=== PATIENT | male | born 1945 | race Caucasian/White ===

== ENCOUNTER 2018-11-14 17:51 | Inpatient (IN) | payer MEDICARE, BC ==
[~2018-11-14 17:51] MED LIST: ISOVUE-370 76%-LOCM 1 ML ONE
[2018-11-14] MEDS ORDERED: Acetaminophen 500 MG TAB ONE (18:23)
[2018-11-14 18:25] LABS: #Eosinphils 0.1 thou/uL (0.0-0.7); #Lymphocytes 0.7 thou/uL (1.20-3.40); #Neutrophils 6.8 thou/uL (1.40-6.50); %Basophils 0.2 % (0.0-1.0); %Eosinophils 0.9 % (0.0-10.0); %Lymphocytes 9.7 % (21.0-51.0); %Monocytes 0.5 % (0.0-10.0); %Neutrophils 88.7 % (42.0-75.0); Mean Corpuscular HGB CONC 33.3 g/dL (32.0-36.0); Mean Corpuscular Hemoglobin 30.1 pg (27.0-31.0); Mean Corpuscular Volume 90.4 fL (78.0-98.0); Mean Platelet Volume 6.4 fL (7.4-10.4); Platelet Count 247 thou/uL (130-400); RBC Distribution Width 13.3 % (11.5-14.5); Red Blood Cell (RBC) Count 5.31 mill/uL (4.70-6.10); White Blood Cell (WBC) Count 7.7 thou/uL (4.8-10.8)
--- NOTE | 2018-11-14 18:49 | RAD ---
AP VIEW CHEST 11/14/18 HISTORY: AP view chest is obtained on 11/14/18. AP view chest demonstrates cardiomegaly. Pulmonary vascular congestion is seen. There is some dextros coliosis seen. No evidence of effusion seen. IMPRESSION: Pulmonary vascular congestion and cardiomegaly. POS: H
[2018-11-14 18:50] LABS: ALT (SGPT) 15 U/L (8-55); AST (SGOT) 20 U/L (5-34); Albumin 4.3 g/dL (3.4-4.8); Alkaline Phosphatase 45 U/L (40-150); Anion Gap 16 mmol/L (10-20); BUN (Urea Nitrogen) 24 mg/dL (8.4-25.7); Bilirubin, Total 1.3 mg/dL (0.2-1.2); Calc. Creatinine Clearance 0 mL/min (70-130); Calcium 10.3 mg/dL (7.8-10.44); Carbon Dioxide 20 mmol/L (23-31); Chloride 103 mmol/L (98-107); Estimated GFR-MDRD 59; Globulin 2.8 g/dL (2.4-3.5); Glucose 89 mg/dL (80-115); Magnesium 1.8 mg/dL (1.6-2.6); Potassium 4.1 mmol/L (3.5-5.1); Protein, Total 7.1 g/dL (5.8-8.1); Sodium 135 mmol/L (136-145)
[2018-11-14 19:33] LABS: Bilirubin Negative (Negative); Blood, Urine Negative (Negative); Clarity CLEAR (Clear); Glucose, Urine (Dipstick) Negative (Negative); Leukocyte Negative (Negative); Nitrite Negative (Negative); Protein, Urine (Dipstick) Negative (Neg-Trace); Specific Gravity, Urine 1.017 (1.002-1.036)
[2018-11-14] MEDS ORDERED: Ibuprofen 800 MG TAB ONE (19:44)
[2018-11-14] MEDS ORDERED: Diltiazem HCl 125 MG, Admixture Fee 1 EACH in Sodium Chloride 0.9% 100 ML IVPB SCH (19:45)
--- NOTE | 2018-11-14 20:39 | CT ---
CONTRAST ENHANCED CT IMAGES OF ABDOMEN AND PELVIS: 11/14/18 HISTORY: Abdominal pain. Fever. Contrast enhanced CT images of the abdomen and pelvis demonstrate the lung bases to be unremarkable. The liver, spleen, and pancreas are unremarkable. The gallbladder has been surgically removed. Adrena l glands are unremarkable. The right kidney is unremarkable. Small cortical cysts seen in the left ki dney. Mildly dilated loops of proximal small bowel seen. There are numerous descending and sigmoid colonic diverticula compatible with diverticulosis. There i s also inflammatory change surrounding the sigmoid colon and the surrounding fat compatible with dive rticulitis. There is inflammation of the pericolonic fat but no definite evidence of abscess. No defi nite evidence of free intraperitoneal air seen. Also noted is a 3.1 x 3.9 x 8.0 cm area of soft tissu e fluid density anterior to the left hip joint. This may represent a synovial cyst originating from t he left hip joint. Correlation with MRI may be of use to further characterize this. IMPRESSION: Descending colonic diverticulosis with surrounding inflammatory change concerning for diverticulitis as well. POS: [facility]
[2018-11-14] MEDS ORDERED: MEROPENEM 1 GM/50 ML 1 GM in Premix Bag 1 BAG IVPB SCH (20:45)
[2018-11-14 22:27] LABS: Lactic Acid 1.3 mmol/L (0.5-2.2)
[2018-11-15 00:02] VITALS: BMI 32.4
--- NOTE | 2018-11-15 00:26 | HP ---
PRIMARY CARE PHYSICIAN: Sylvain Amador DO CHIEF COMPLAINT: Abdominal pain. HISTORY OF PRESENT ILLNESS: The patient is a 72-year-old male with past medical history of atrial fibrillation, hypertension, diverticulosis and diverticulitis , who presented to the emergency department for abdominal pain. The patient reports that the symptom has been going on since last night and started to get worse. The patient reports a subjective fever. The patient reports compliant with all his medications. He denies any nausea or vomiting at this point. The patient says that he has multiple episodes of diverticulitis in the past and he has known history of diverticulosis. The patient denies any resection of his bowels. The patient also reports history of atrial fibrillation and he is on metoprolol and Pradaxa. The patient does follow up with business analysis analyst. The patient denies any chest pain or palpitations at this point. The patient reports that he is feeling better. The patient reports that he has not eaten in some time at this point. PAST MEDICAL HISTORY: Hypertension, atrial fibrillation, diverticulosis and diverticulitis. PAST SURGICAL HISTORY: Hernia repair and cholecystectomy. FAMILY HISTORY: The patient is adopted and therefore unknown SOCIAL HISTORY: The patient denies any smoking, drinking, or illicit drugs. CURRENT MEDICATIONS: 1. Metoprolol. 2. Pradaxa. 3. Lisinopril. 4. Vitamin D. REVIEW OF SYSTEMS: CONSTITUTIONAL: The patient reports fever. EYES: Denies any pain in the eyes. ENT: Denies any sore throat or sinus pain. CARDIOVASCULAR: Denies any chest pain, or palpitations at this point. RESPIRATIONS: Denies any cough, shortness of breath, or wheezing. GI: Abdominal pain. Denies diarrhea, nausea, or vomiting. GENITOURINARY: Denies any dysuria or blood in urine. MUSCULOSKELETAL: Denies any joint pain. SKIN: Denies any rashes. NEUROLOGIC: Denies any dizziness, headache, or loss of consciousness. EXTREMITIES: Denies any lower extremity edema. PHYSICAL EXAMINATION: VITAL SIGNS: Afebrile, tachycardia. Blood pressure 93/59, heart rate 122, respiratory rate 18, and O2 saturation 93% on room air. HEAD: Atraumatic. Eyes, PERRLA. NECK: No lymphadenopathy noted. ENT: Normal uvula. RESPIRATIONS: No respiratory distress. Breath sounds clear. CARDIOVASCULAR: Tachycardia, irregularly irregular heart rhythm. No murmur or rubs. ABDOMEN: Abdominal pain, mild discomfort to palpation on the left, otherwise is significant with decreased bowel sounds and no distention. NEURO: Alert and oriented. BACK AND MUSCULOSKELETAL: No edema noted. SKIN: No rashes. PSYCHIATRIC: Alert and oriented. IMAGING: EKG, Afib with RVR. Review of CT scan of pelvis is significant for diverticulitis. A chest x-ray reviewed. LABORATORY DATA: Labs reviewed and significant labs include troponin normal, white blood cell count within normal limits. BNP 133, urine negative. We will get lactic acid. ASSESSMENT AND PLAN: 1. Diverticulitis. The patient was started on Meropenem. Given multiple history of diverticulitis, we will do a surgical consult. At this point, keep n.p.o. Advised diet in the morning if the patient is able to tolerate well, IVF p.r.n. pain control and Zofran p.r.n. 2. Atrial fibrillation with rapid ventricular response. We will continue Cardizem drip, at this point tele. Trend troponin's. Continue home metoprolol and Pradaxa. 3. Hypertension. Continue home medications once reconciliation is complete. Also, do Cardiology consult and echocardiogram in the morning. Continue home medications. 4. Deep venous thrombosis prophylaxis. Continue Pradaxa. The patient reports that he is full code and his medical power of disability attorney would be his , daughter, then son. 5. Sepsis. A clinical concern for sepsis likely due to diverticulitis present on admission, organism unknown at this point. We will get blood cultures. 6. Pulmonary Congestion: Likely related to Afib with RVR. Pt does not seems to be hypoxic or have acute resp failure. TTE pending. 7. Hypotension: SBP noted to be in 80s during admission, pt was asx. improved with 500 cc NS bolus. Avoid excessive hydration given pulm congestion noted on CXR Job ID: [id number] [facility]
[2018-11-15] MEDS ORDERED: MEROPENEM 1 GM/50 ML 1 GM in Premix Bag 1 BAG IVPB PRN (01:52)
[2018-11-15] MEDS ORDERED: Nitroglycerin 0.4 MG TAB (25 Tab Bottle) SL PRN (01:53)
[2018-11-15] MEDS ORDERED: Morphine 4 MG/ML VIAL SLOW IVP PRN (01:54)
[2018-11-15] MEDS ORDERED: Sodium Chloride 0.9% 1,000 ML IV SCH (02:00)
[2018-11-15] MEDS ORDERED: Sodium Chloride 0.9% 500 ML IVPB ONE (02:00)
[2018-11-15 02:30] LABS: Hemoglobin 15.1 g/dL (14.0-18.0); Mean Corpuscular HGB CONC 32.6 g/dL (32.0-36.0); Mean Corpuscular Hemoglobin 29.7 pg (27.0-31.0); Mean Platelet Volume 6.1 fL (7.4-10.4); Platelet Count 263 thou/uL (130-400); RBC Distribution Width 13.4 % (11.5-14.5); White Blood Cell (WBC) Count 18.7 thou/uL (4.8-10.8)
[2018-11-15 02:37] LABS: Band 12 % (5-11); Eosinophils 1 % (0-10); Lymphocytes 1 % (21-51); MDiff Complete? YES; Monocytes 4 % (0-10); Neutrophil 82 % (42-75)
[2018-11-15 02:55] LABS: ALT (SGPT) 16 U/L (8-55); AST (SGOT) 21 U/L (5-34); Albumin 3.8 g/dL (3.4-4.8); Alkaline Phosphatase 38 U/L (40-150); Anion Gap 13 mmol/L (10-20); BUN (Urea Nitrogen) 26 mg/dL (8.4-25.7); Bilirubin, Total 1.3 mg/dL (0.2-1.2); CRP (Inflammatory) 8.39 mg/dL (= or < 0.5); Calc. Creatinine Clearance 70 mL/min (70-130); Calcium 9.6 mg/dL (7.8-10.44); Carbon Dioxide 23 mmol/L (23-31); Chloride 104 mmol/L (98-107); Estimated GFR-MDRD 48; Globulin 2.6 g/dL (2.4-3.5); Glucose 107 mg/dL (80-115); Potassium 3.9 mmol/L (3.5-5.1); Protein, Total 6.4 g/dL (5.8-8.1); Sodium 136 mmol/L (136-145)
[2018-11-15 03:49] LABS: Troponin I 0.033 ng/mL (< 0.028)
[2018-11-15 03:54] LABS: Cardiac Risk 3.1 (Less than 4.5)
[2018-11-15 07:18] LABS: Troponin I 0.031 ng/mL (< 0.028)
[2018-11-15] MEDS ORDERED: Metoprolol Tartrate 25 MG TAB PO SCH (08:30)
[2018-11-15] MEDS ORDERED: Dextrose 5 % And 0.9 % NaCl 1,000 ML IV SCH (08:30)
[2018-11-15] MEDS ORDERED: Lisinopril 10 MG TAB PO SCH (09:00)
[2018-11-15] MEDS ORDERED: Metoprolol Tartrate 50 MG TAB PO SCH (09:00)
[2018-11-15] MEDS ORDERED: Famotidine/PF 20 mg/2ml Vial SLOW IVP SCH (09:00)
[2018-11-15] MEDS ORDERED: MEROPENEM 1 GM/50 ML 1 GM in Premix Bag 1 BAG IVPB SCH (09:00)
[2018-11-15] MEDS: Metoprolol Tartrate 25 MG TAB PO SCH ×3 (09:32→20:20)
[2018-11-15] MEDS: Saccharomyces boulardii 250 MG CAP PO SCH (09:44)
[2018-11-15] MEDS: Dabigatran 150 mg Capsule PO SCH ×2 (12:06→20:19)
--- NOTE | 2018-11-15 12:44 | CON ---
DATE OF CONSULTATION: REASON FOR CONSULTATION: Atrial fibrillation with RVR. HISTORY OF PRESENT ILLNESS: Mr. Pedroza is a very pleasant 72-year-old gentleman, who was seen and evaluated in the past. He has a history of chronic atrial fibrillation, on anticoagulation therapy. He recently presented with diverticulitis. He has had abdominal pain and subjective fevers. He also states his heart rate has been fluttering and irregular. No chest pain, pressure, or associated symptoms. PAST MEDICAL HISTORY: Atrial fibrillation, hyperlipidemia, hypertension, cholecystectomy, hernia repair. ALLERGIES: NONE. HOME MEDICATIONS: Include: 1. Lisinopril. 2. Zocor. 3. Metoprolol. 4. Fenofibrate. 5. Isosorbide. 6. Pradaxa. 7. Hydrochlorothiazide. 8. Testosterone. SOCIAL HISTORY: No current tobacco or alcohol use. CARDIAC HISTORY: Last echo; LVEF 50% to 55%, dated 11/20/2017. REVIEW OF SYMPTOMS: Ten-point review of systems is reviewed and as above, otherwise negative. PHYSICAL EXAMINATION: GENERAL: Patient is a pleasant 72-year-old gentleman, who is in no acute distress. The patient appears their stated age. VITAL SIGNS: Blood pressure 105/58, pulse of 104, temperature 98.4. NEUROLOGIC: The patient is alert and oriented x3 with no focal neurologic deficits. HEENT: Sclerae without icterus. Mouth has moist mucous membranes with normal pallor. NECK: No JVD. Carotid upstroke brisk. No bruits bilaterally. LUNGS: Clear to auscultation with unlabored respirations. BACK: No scoliosis or kyphosis. CARDIAC: Irregularly irregular. No S3 or S4 noted. No significant rubs, murmurs, thrills, or gallops noted throughout the precordium. PMI is not displaced. There is no parasternal heave. ABDOMEN: Soft, nontender, nondistended. No peritoneal signs present. No hepatosplenomegaly. No abnormal striae. EXTREMITIES: 2+ femoral and 2+ dorsalis pedis pulses. No cyanosis, clubbing, or edema. SKIN: No gross abnormalities. IMPRESSION: Atrial fibrillation with rapid ventricular response. RECOMMENDATIONS: The patient will be started on metoprolol 25 b.i.d. We recommend discontinuing Pradaxa and adding Lovenox 1 mg/kg subcu q.12. I doubt surgery will be needed, but this will delay this further. He has no current bleeding issues or problems. We will leave it to the discretion of the primary team. Otherwise, he is currently on antibiotic therapy. As his diverticulitis improve so too will his atrial fibrillation. May consider adding one dose of digoxin IV. Job ID: [id number]
[2018-11-15] MEDS ORDERED: metroNIDAZOLE 500 MG TAB PO SCH (15:00)
[2018-11-15] MEDS ORDERED: Digoxin 0.25 MG TAB PO SCH ×2 (15:15→21:00)
--- NOTE | 2018-11-15 15:18 | PDOC.PN ---
- Subjective Encounter Start Date: 11/15/18 Encounter Start Time: 11:30 Patient seen and examined for Afib with RVR and Acute Divertuculitis. Constant abd pain in lower quadrants. No fever/chills. Feels fatigued/gen weak. Had loose stool earlier. No other complaints. No overnight events - Objective Resuscitation Status - Order Detail: 11/15/18 01:37 Resuscitation Status Routine Resuscitation Status: FULL: Full Resuscitation MAR Reviewed: Yes Vital Signs & Weight: Vital Signs (12 hours) Temp Pulse Pulse Pulse Resp BP BP 11/15/18 11:32 98.4 F 104 H 18 11/15/18 09:55 124 H 135 H 97/54 L 105/58 L 11/15/18 09:30 95 115 H 112/53 L 109/54 L 11/15/18 07:50 11/15/18 07:48 98.8 F 97 16 11/15/18 03:44 97.7 F 79 17 BP Pulse Ox 11/15/18 11:32 97/57 L 94 L 11/15/18 09:55 11/15/18 09:30 11/15/18 07:50 97 11/15/18 07:48 95/53 L 97 11/15/18 03:44 93/54 L 92 L Weight Weight 232 lb 11.2 oz I&O: 11/14/18 11/15/18 11/16/18 06:59 06:59 06:59 Intake Total 730 Output Total 250 Balance 480 Result Diagrams: 11/15/18 02:11 11/15/18 02:11 Additional Labs: Microbiology 11/14/18 19:06 Nasal swab Influenza Types A,B Direct EIA - Final 11/14/18 19:27 Urine voided Urine Culture - Preliminary NO GROWTH AT 12 HOURS 11/14/18 18:15 Venous blood - Left Hand Blood Culture - Preliminary Specimen has been received and culture in progress. No Growth to date. 11/14/18 18:15 Venous blood - Left Hand Blood Culture - Preliminary Escherichia coli Laboratory Tests 11/15/18 11/15/18 11/15/18 02:11 02:11 05:58 Band Neuts % (Manual) 12 H Troponin I 0.031 H C-Reactive Protein 8.39 H EKG Reviewed by me: Yes (Tele Afib with RVR) Phys Exam - Physical Examination Constitutional: NAD Respiratory: no wheezing, no rales, no rhonchi Symmetrical Cardiovascular: no rub, irregular no heaves/pulsations Gastrointestinal: soft, positive bowel sounds tend in lower quadrants, no rebound/guarding Musculoskeletal: no edema Neurological: non-focal, normal sensation, moves all 4 limbs Dx/Plan - Plan IMPRESSION: 1. Acute Diverticulitis 2. Ecoli bacteremia 3. Sepsis with acute organ dysfunction due to #1 4. Afib with RVR 5. Elevated troponin due to demand ischemia 6. 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 Obesity BMI 32.5 8. HTN 9. Chronic anticoagulation 10. HLD PLAN: Change IVF to D5NS @125 ml/hr Digoxin Cont Metoprolol at low dose due to low BP Cont Atbx Clear liqd diet Consult [employer] for dietary education for Diverticulosis AM labs Review of Systems - Review of Systems Respiratory: negative: Cough, Dry, Shortness of Breath, Hemoptysis, SOB with Excertion, Pleuritic Pain, Sputum, Wheezing Cardiovascular: negative: chest pain, palpitations, orthopnea, paroxysmal nocturnal dyspnea, edema, light headedness, other - Medications/Allergies Allergies/Adverse Reactions: Allergies Allergy/AdvReac Type Severity Reaction Status Date / Time No Known Allergies Allergy Unverified 11/14/18 19:43 Medications: Current Medications Acetaminophen (Tylenol) 650 mg PO Q6H PRN PRN Reason: Headache/Fever or Pain Dabigatran (Pradaxa) 150 mg PO BID [facility] Last Admin: 11/15/18 12:06 Dose: 150 mg Digoxin (Lanoxin) 0.125 mg PO DAILY [facility] Digoxin (Lanoxin) 0.25 mg PO ONE [facility] Digoxin (Lanoxin) 0.25 mg PO 2100 [facility] Stop: 11/15/18 21:01 Famotidine (Pepcid) 20 mg PO BID [facility] Dextrose/Sodium Chloride (D5 0.9% Ns) 1,000 mls @ 125 mls/hr IV .Q8H [facility] Last Admin: 11/15/18 09:44 Dose: 1,000 mls Meropenem 1 gm/ Device 50 mls @ 100 mls/hr IVPB Q8H [facility] Stop: 11/15/18 20:00 Last Admin: 11/15/18 09:44 Dose: 50 mls Metronidazole 500 mg/ Device 100 mls @ 100 mls/hr IVPB Q8HR [facility] Ciprofloxacin/Dextrose 400 mg/ (Device) 200 mls @ 200 mls/hr IVPB 0100,1300 [facility] Last Admin: 11/15/18 14:13 Dose: 200 mls Metoprolol Tartrate (Lopressor) 25 mg PO BID [facility] Last Admin: 11/15/18 10:04 Dose: Not Given Miscellaneous Medication (Pharmacy To Dose) 1 each IVPB ONE PRN PRN Reason: Pharmacy to dose Morphine Sulfate (Morphine) 1 mg SLOW IVP Q4H PRN PRN Reason: PAIN IF UNABLE TO TAKE PO Nitroglycerin (Nitrostat) 0.3 mg SL Q5MIN PRN PRN Reason: Chest Pain Ondansetron HCl (Zofran) 4 mg SLOW IVP Q6H PRN PRN Reason: Nausea/Vomiting Saccharomyces Boulardii (Florastor) 250 mg PO DAILY [facility] Last Admin: 11/15/18 09:44 Dose: 250 mg Sodium Chloride (Flush - Normal Saline) 10 ml IVF Q12HR [facility] Last Admin: 11/15/18 09:45 Dose: 10 ml Sodium Chloride (Flush - Normal Saline) 10 ml IVF PRN PRN PRN Reason: Saline Flush
[2018-11-15] MEDS: metroNIDAZOLE 500 MG in Premix Bag 1 BAG IVPB SCH ×2 (15:52→22:15)
[2018-11-15] MEDS: Ondansetron PF 4 MG/2 ML Vial SLOW IVP PRN ×2 (15:54→22:14)
[2018-11-15] MEDS: Acetaminophen 325 MG TAB PO PRN ×2 (15:57→22:25)
[2018-11-15] MEDS: Dextrose 5 % And 0.9 % NaCl 1,000 ML IV SCH ×2 (16:00→20:22)
[2018-11-15] MEDS ORDERED: Cipro 250 MG TAB PO SCH ×2 (20:00)
[2018-11-15] MEDS ORDERED: Ciprofloxacin 500 MG TAB PO SCH (20:00)
[2018-11-15] MEDS: Famotidine 20 MG TAB PO SCH (20:20)
[2018-11-16] MEDS: metroNIDAZOLE 500 MG in Premix Bag 1 BAG IVPB SCH ×3 (05:57→21:11)
[2018-11-16] MEDS: Dextrose 5 % And 0.9 % NaCl 1,000 ML IV SCH (05:57)
[2018-11-16 06:05] LABS: #Lymphocytes 0.7 thou/uL (1.20-3.40); #Monocytes 0.7 thou/uL (0.11-0.59); #Neutrophils 5.9 thou/uL (1.40-6.50); %Basophils 0.4 % (0.0-1.0); %Eosinophils 0.6 % (0.0-10.0); %Lymphocytes 9.4 % (21.0-51.0); %Monocytes 10.1 % (0.0-10.0); %Neutrophils 79.6 % (42.0-75.0); Hemoglobin 13.3 g/dL (14.0-18.0); Mean Corpuscular HGB CONC 33.6 g/dL (32.0-36.0); Mean Corpuscular Hemoglobin 30.6 pg (27.0-31.0); Mean Corpuscular Volume 91.2 fL (78.0-98.0); Mean Platelet Volume 6.5 fL (7.4-10.4); Platelet Count 182 thou/uL (130-400); RBC Distribution Width 13.3 % (11.5-14.5); Red Blood Cell (RBC) Count 4.35 mill/uL (4.70-6.10); White Blood Cell (WBC) Count 7.4 thou/uL (4.8-10.8)
[2018-11-16 06:29] LABS: ALT (SGPT) 60 U/L (8-55); AST (SGOT) 64 U/L (5-34); Albumin 3.3 g/dL (3.4-4.8); Alkaline Phosphatase 36 U/L (40-150); Anion Gap 12 mmol/L (10-20); BUN (Urea Nitrogen) 21 mg/dL (8.4-25.7); Calc. Creatinine Clearance 81 mL/min (70-130); Calcium 8.3 mg/dL (7.8-10.44); Carbon Dioxide 21 mmol/L (23-31); Chloride 105 mmol/L (98-107); Estimated GFR-MDRD 57; Globulin 2.3 g/dL (2.4-3.5); Glucose 132 mg/dL (80-115); Magnesium 1.8 mg/dL (1.6-2.6); Protein, Total 5.6 g/dL (5.8-8.1); Sodium 134 mmol/L (136-145)
--- NOTE | 2018-11-16 08:44 | CON ---
DATE OF CONSULTATION: 11/15/2018 HISTORY OF PRESENT ILLNESS: This is a 72-year-old male with a history of diverticulitis, atrial fibrillation, hypertension. He was admitted on 2018 due to concern for diverticulitis. The patient's main complaint was lower abdominal cramping; however, denied any systemic signs of infection such as fever. He also had good p.o. tolerance, denying any nausea or vomiting. This morning, he had had 4 episodes of loose bowel movements, nonbloody. The patient has a known history of diverticulosis without any history of bowel resection. He has had a couple of episodes of diverticulitis, requiring antibiotic therapy. Per the patient, he says that his last episode was several months ago, but over the course of several years, they become more frequent. Workup in the ED showed a white count of 18.7 and tachycardia with pulse 104. CT abdomen and pelvis showed descending colon diverticulosis with surrounding inflammatory changes concerning for diverticulitis. The patient was made n.p.o. and started on meropenem. Over the course of several hours, he improved, but had persistence of diarrhea. Upon our assessment, the patient had no abdominal pain aside from small flare ups whenever he moved. He denies fevers, nausea, or vomiting. The patient also has a history of atrial fibrillation with RVR, in which he is on metoprolol and Pradaxa. The patient never had any chest pain or palpitations during the course; however, he was started on a Cardizem drip due to persistent tachycardia, likely thought to be due to atrial fibrillation with RVR in response to acute diverticulitis. When we were seeing him this morning, he was on Cardizem drip, rate in the low 100s, asymptomatic. PAST MEDICAL HISTORY: Hypertension, atrial fibrillation, diverticulosis and diverticulitis. PAST SURGICAL HISTORY: Hernia repair and cholecystectomy. FAMILY HISTORY: The patient is adopted, and therefore, unknown. SOCIAL HISTORY: The patient denies any smoking, drinking, or illicit drug use. CURRENT MEDICATIONS: 1. Metoprolol. 2. Pradaxa. 3. Lisinopril. 4. Vitamin D. REVIEW OF SYSTEMS: CONSTITUTIONAL: Denies fevers or chills. CARDIOVASCULAR: Denies any chest pain or palpitations. RESPIRATIONS: Denies cough, shortness of breath, or wheezing. ABDOMEN: Reports minimal abdominal pain only with movement. Otherwise, he is comfortable. Denies nausea or vomiting; however, reports multiple loose bowel movements. : The patient denies any dysuria or blood in urine. SKIN: The patient denies any rashes. NEUROLOGIC: Neurovascularly intact and moves all 4 extremities. EXTREMITIES: Denies any lower extremity edema. PHYSICAL EXAMINATION: VITAL SIGNS: Pulse 104, temperature 98.4, respirations 18, O2 saturation 94% on room air and blood pressure 97/57. GENERAL: The patient is resting comfortably, lying down in bed. HEENT: Head atraumatic. Eyes, PERRLA. NECK: No lymphadenopathy or rigidity. RESPIRATION: Equal rise and fall of chest. No respiratory distress. Clear to auscultation breathing. CARDIOVASCULAR: Tachycardic with regular rate and rhythm. No murmurs or rubs. ABDOMEN: Normoactive bowel sounds. Mild discomfort to palpation on the left lower quadrant. Otherwise, nondistended with no guarding or rebound. NEUROLOGIC: Alert and oriented x3. SKIN: No rashes. Good skin turgor. PSYCHIATRIC: Alert and oriented. IMAGING: CT of the abdomen and pelvis with contrast, inflammatory changes around the sigmoid colon with surrounding fat compatible with diverticulitis. Numerous ascending sigmoid colonic diverticula. No evidence of abscess. No evidence of free intraperitoneal air. Presence of 3.1 x 3.9 x 8.0 cm area of soft tissue fluid density anterior to the left hip joint. Synovial cyst from hip joint. LABORATORY DATA: White count 18.7, hemoglobin 15.1, hematocrit 46.4, neutrophils 82%, bands 12%. BUN 26, creatinine 1.46, potassium 3.9. CRP 8.39. T bilirubin 1.3. ASSESSMENT AND PLAN: 1. Acute diverticulitis: After assessment, the patient is not a good surgical candidate. He is improving with antibiotics. Discontinue meropenem and recommend starting on Cipro 500 mg p.o. b.i.d. for 2 weeks and Flagyl 500 mg p.o. t.i.d. for 2 weeks with General Surgery outpatient followup with general surgeon aside from Dr. Marcelino. Also recommend outpatient colonoscopy. We will start the patient on a regular diet since he is ready to eat. 2. Atrial fibrillation with rapid ventricular response. Continue medical management per primary team. 3. Hypertension: Continue with primary care team management on home medications. 4. Deep venous thrombosis prophylaxis: Continue Pradaxa unless otherwise changed by Cardiology. Job ID: [id number] [facility]
[2018-11-16] MEDS ORDERED: Dextrose 5 % And 0.9 % NaCl 1,000 ML IV SCH ×2 (09:34→10:37)
[2018-11-16] MEDS: Saccharomyces boulardii 250 MG CAP PO SCH (10:02)
[2018-11-16] MEDS: Digoxin 0.125 MG TAB PO SCH (10:02)
[2018-11-16] MEDS: Metoprolol Tartrate 25 MG TAB PO SCH ×2 (10:02→21:10)
[2018-11-16] MEDS: Famotidine 20 MG TAB PO SCH ×2 (10:03→21:10)
[2018-11-16] MEDS: Dabigatran 150 mg Capsule PO SCH ×2 (11:14→21:10)
[2018-11-16] MEDS ORDERED: Furosemide 20 MG/2 ML VIAL SLOW IVP SCH (13:45)
--- NOTE | 2018-11-16 13:51 | RAD ---
CHEST ONE VIEW: HISTORY: Dyspnea. COMPARISON: 11/14/2018 FINDINGS: The cardiac silhouette is magnified and at the upper limits of normal in size. The pulmonary vascula ture is more engorged with mild bilateral perihilar and bibasilar infiltrates. The mediastinum is mi dline. No consolidation or evidence of pneumothorax. IMPRESSION: Pulmonary vascular congestion with mild patchy bibasilar infiltrate. POS: [facility]
--- NOTE | 2018-11-16 18:24 | PDOC.PN ---
- Subjective Encounter Start Date: 11/16/18 Encounter Start Time: 09:30 Patient seen and examined for Sepsis/Bacteremia/Acute Diverticulitis. Feels gen weak. Diarrhea +. SOB +. No overnight events - Objective Resuscitation Status - Order Detail: 11/15/18 01:37 Resuscitation Status Routine Resuscitation Status: FULL: Full Resuscitation MAR Reviewed: Yes Vital Signs & Weight: Vital Signs (12 hours) Temp Pulse Resp BP Pulse Ox 11/16/18 12:50 98.4 F 101 H 20 140/88 97 11/16/18 10:03 82 109/52 L 11/16/18 09:10 93 L 11/16/18 08:02 98.4 F 75 18 98/61 97 Weight Weight 232 lb I&O: 11/15/18 11/16/18 11/17/18 06:59 06:59 06:59 Intake Total 730 1670 1900 Output Total 250 400 400 Balance 480 1270 1500 Result Diagrams: 11/16/18 04:43 11/16/18 04:43 Additional Labs: Accuchecks 11/16/18 13:07 POC Glucose 100 EKG Reviewed by me: Yes (Tele Afib) Phys Exam - Physical Examination Constitutional: NAD Respiratory: no wheezing, no rhonchi few rales at bases Cardiovascular: RRR, no rub Gastrointestinal: soft, positive bowel sounds Mild periumbilical tenderness Musculoskeletal: no edema Neurological: moves all 4 limbs Dx/Plan - Plan IMPRESSION: 1. Acute Diverticulitis 2. Ecoli bacteremia 3. Sepsis with acute organ dysfunction due to #1 4. Afib with RVR - rate better controlled. 5. Elevated troponin due to demand ischemia 6. 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 Obesity BMI 32.5 8. HTN 9. Chronic anticoagulation 10. HLD PLAN: DC IVF Cont IV Cipro and Flagyl Add Alinia for Cryptosporidium Consult GI Await Echo Cont Digoxin with low dose Metoprolol Full liqd diet AM labs Review of Systems - Review of Systems Respiratory: SOB with Excertion. negative: Cough, Dry, Shortness of Breath, Hemoptysis, Pleuritic Pain, Sputum, Wheezing Cardiovascular: negative: chest pain, palpitations, orthopnea, paroxysmal nocturnal dyspnea, edema, light headedness, other Gastrointestinal: Abdominal Pain, Diarrhea. negative: Nausea, Vomiting, Constipation, Melena, Hematochezia, Other - Medications/Allergies Allergies/Adverse Reactions: Allergies Allergy/AdvReac Type Severity Reaction Status Date / Time No Known Allergies Allergy Unverified 11/14/18 19:43 Medications: Current Medications Acetaminophen (Tylenol) 650 mg PO Q6H PRN PRN Reason: Headache/Fever or Pain Last Admin: 11/15/18 22:25 Dose: 650 mg Albuterol/Ipratropium (Duoneb) 3 ml NEB [id number] PRN PRN Reason: SOB &/or Wheezing Dabigatran (Pradaxa) 150 mg PO BID [facility] Last Admin: 11/16/18 11:14 Dose: 150 mg Digoxin (Lanoxin) 0.125 mg PO DAILY [facility] Last Admin: 11/16/18 10:02 Dose: 0.125 mg Famotidine (Pepcid) 20 mg PO BID [facility] Last Admin: 11/16/18 10:03 Dose: 20 mg Hydrochlorothiazide (Hydrochlorothiazide) 25 mg PO DAILY [facility] Metronidazole 500 mg/ Device 100 mls @ 100 mls/hr IVPB Q8HR [facility] Last Admin: 11/16/18 14:00 Dose: 100 mls Ciprofloxacin/Dextrose 400 mg/ (Device) 200 mls @ 200 mls/hr IVPB 0100,1300 [facility] Last Admin: 11/16/18 16:06 Dose: 200 mls Metoprolol Tartrate (Lopressor) 25 mg PO BID [facility] Last Admin: 11/16/18 10:02 Dose: 25 mg Miscellaneous Medication (Pharmacy To Dose) 1 each IVPB ONE PRN PRN Reason: Pharmacy to dose Stop: 12/15/18 15:17 Morphine Sulfate (Morphine) 1 mg SLOW IVP Q4H PRN PRN Reason: PAIN IF UNABLE TO TAKE PO Nitazoxanide (Alinia) 500 mg PO BID [facility] Last Admin: 11/16/18 11:14 Dose: 500 mg Nitroglycerin (Nitrostat) 0.3 mg SL Q5MIN PRN PRN Reason: Chest Pain Ondansetron HCl (Zofran) 4 mg SLOW IVP Q6H PRN PRN Reason: Nausea/Vomiting Last Admin: 11/15/18 22:14 Dose: 4 mg Potassium Chloride (K-Dur) 20 meq PO QAM[facility] Saccharomyces Boulardii (Florastor) 250 mg PO DAILY [facility] Last Admin: 11/16/18 10:02 Dose: 250 mg Sodium Chloride (Flush - Normal Saline) 10 ml IVF Q12HR [facility] Last Admin: 11/16/18 10:06 Dose: Not Given Sodium Chloride (Flush - Normal Saline) 10 ml IVF PRN PRN PRN Reason: Saline Flush
--- NOTE | 2018-11-16 23:51 | CON ---
DATE OF CONSULTATION: 11/16/2018 CHIEF COMPLAINT: Abdominal pain. HISTORY OF PRESENT ILLNESS: Mr. Pedroza is a 72-year-old man, who presented to the emergency room on 11/14/2018 after he had onset of acute chills and then weakness. He had some associated lower abdominal aching with that. The night before he had some tingling in his lower abdomen, but not significant pain. He had subjective fever and he underwent evaluation in the emergency room and was found to have septic picture with a CT scan showing inflammatory changes around the segment of sigmoid colon with an area of diverticulosis and was diagnosed with diverticulitis. This was also complicated with atrial fibrillation with rapid ventricular response. He did not feel short of breath, but noticed his respiratory rate had increased above his baseline. He has had a few episodes of sudden-onset dry heaves yesterday and today, but no ongoing nausea. At baseline, he has 3 or 4 soft stools per day after meals since he had his gallbladder out. After admission to the hospital, and after being placed on antibiotics, he has developed diarrhea and has had 5 or 6 uncontrollable watery diarrhea episodes per day. He has had no blood in the stool, but has noted spots of blood on the toilet paper. He had stool studies performed that were positive for Cryptosporidium. He was started on Alinia for that. His blood cultures grew out E. coli and he is asymptomatically improved at this point with antibiotics. PAST MEDICAL HISTORY: 1. Atrial fibrillation on chronic anticoagulation. 2. He has a known history of diverticulosis by prior colonoscopy; however, he does not believe he has ever actually had to take antibiotics for acute diverticulitis in the past. 3. He has hypertension. PAST SURGICAL HISTORY: 1. Hernia repair. 2. Cholecystectomy. FAMILY HISTORY: Not known as the patient is adopted. SOCIAL HISTORY: No alcohol, tobacco, or drugs. ALLERGIES: NO KNOWN DRUG ALLERGIES. MEDICATIONS: 1. Prior to admission include: Hydrochlorothiazide. 2. Fenofibrate. 3. Lisinopril. 4. Simvastatin. 5. Metoprolol. 6. Pradaxa. 7. Vitamin D. 8. Testosterone. REVIEW OF SYSTEMS: Negative x10 systems reviewed except as stated in history of present illness. PHYSICAL EXAMINATION: VITAL SIGNS: Temperature 98.4, pulse 101, blood pressure 140/88. GENERAL: He is in no acute distress. He is somewhat flushed. HEENT: His eyes have no scleral icterus. He is alert and oriented x3. His oropharynx is clear without lesions. No cervical or supraclavicular lymphadenopathy. LUNGS: Clear to auscultation bilaterally. HEART: Regular rate and rhythm without murmur. ABDOMEN: Soft. Mild tenderness in the left lower abdomen without guarding. Bowel sounds are present. EXTREMITIES: Trace lower extremity edema. NEUROLOGIC: Cranial nerves are grossly intact. LABORATORY DATA: His white blood cell count was 18.7 yesterday, was 7.4 today. His hemoglobin is 13.3 today, down from 15.1 yesterday. Platelets 182, creatinine 1.26, down from 1.46 yesterday. Bilirubin 1.0, AST 64, ALT 60, alkaline phosphatase 36, albumin 3.3. IMAGING: He had a CT scan of the abdomen and pelvis on 11/14/2018, which showed diverticulosis of the descending and sigmoid colon. There was a segment in the sigmoid colon with inflammatory changes and pericolonic fat stranding. No abscess or free air was seen. IMPRESSION: 1. Acute sigmoid diverticulitis. He has not had significant abdominal pain, but he does have tenderness and presented with escherichia coli bacteremia. The most likely source for the escherichia coli would have been diverticulitis. It is possible that he had an ischemic colitis or infectious colitis. However, given the focal area of thickening and inflammation by CT, this would be more consistent with diverticulitis. 2. Atrial fibrillation with rapid ventricular response secondary to an acute infectious process. 3. Acute renal failure, improving. 4. He had a stool sample positive for Cryptosporidium. I suspect this is false positive; however, it would be still easy to treat with a 3-day course of Alinia and I would follow through with that. I would not stop the antibiotics for the diverticulitis based on the stool sample. I do think he should complete a course of antibiotics for the suspected diverticulitis. RECOMMENDATIONS: 1. Completed 10-day course of ciprofloxacin and metronidazole. 2. Completed a 3-day course of the Alinia. 3. He should have colonoscopy as an outpatient in 6 weeks after resolution of the acute diverticulitis. 4. Complete 3-day course of Alinia for the positive stool Cryptosporidium antigen. 5. He is on Pradaxa and this will need to be held 2 days prior to the colonoscopy. Job ID: [id number]
[2018-11-17 05:57] LABS: #Eosinphils 0.1 thou/uL (0.0-0.7); #Lymphocytes 0.7 thou/uL (1.20-3.40); #Monocytes 0.8 thou/uL (0.11-0.59); #Neutrophils 7.5 thou/uL (1.40-6.50); %Eosinophils 0.6 % (0.0-10.0); %Neutrophils 82.3 % (42.0-75.0); Hemoglobin 14.5 g/dL (14.0-18.0); Mean Corpuscular HGB CONC 32.6 g/dL (32.0-36.0); Mean Corpuscular Hemoglobin 29.7 pg (27.0-31.0); Mean Platelet Volume 6.8 fL (7.4-10.4); Platelet Count 184 thou/uL (130-400); RBC Distribution Width 13.4 % (11.5-14.5); Red Blood Cell (RBC) Count 4.88 mill/uL (4.70-6.10); White Blood Cell (WBC) Count 9.1 thou/uL (4.8-10.8)
[2018-11-17] MEDS: metroNIDAZOLE 500 MG in Premix Bag 1 BAG IVPB SCH ×3 (06:08→21:12)
[2018-11-17 06:24] LABS: ALT (SGPT) 95 U/L (8-55); AST (SGOT) 76 U/L (5-34); Albumin 3.7 g/dL (3.4-4.8); Alkaline Phosphatase 55 U/L (40-150); Anion Gap 14 mmol/L (10-20); BUN (Urea Nitrogen) 16 mg/dL (8.4-25.7); Bilirubin, Total 1.4 mg/dL (0.2-1.2); Calc. Creatinine Clearance 97 mL/min (70-130); Calcium 8.9 mg/dL (7.8-10.44); Carbon Dioxide 22 mmol/L (23-31); Chloride 102 mmol/L (98-107); Estimated GFR-MDRD 70; Globulin 2.8 g/dL (2.4-3.5); Glucose 119 mg/dL (80-115); Magnesium 1.7 mg/dL (1.6-2.6); Protein, Total 6.5 g/dL (5.8-8.1); Sodium 134 mmol/L (136-145)
[2018-11-17] MEDS: Hydrochlorothiazide 25 MG TAB PO SCH (09:30)
[2018-11-17] MEDS: Potassium Chloride 20 MEQ TAB PO SCH (09:30)
[2018-11-17] MEDS: Saccharomyces boulardii 250 MG CAP PO SCH (09:30)
[2018-11-17] MEDS: Metoprolol Tartrate 25 MG TAB PO SCH ×2 (09:30→21:12)
[2018-11-17] MEDS: Famotidine 20 MG TAB PO SCH ×2 (09:30→21:12)
[2018-11-17] MEDS: Digoxin 0.125 MG TAB PO SCH (09:30)
[2018-11-17] MEDS: Dabigatran 150 mg Capsule PO SCH ×2 (09:31→21:11)
--- NOTE | 2018-11-17 15:31 | PRG ---
DATE OF SERVICE: 11/17/2018 SUBJECTIVE: Mr. Pedroza has some mild lower abdominal discomfort when he coughs, but otherwise no ongoing abdominal pain. No nausea or vomiting. He is tolerating liquids. OBJECTIVE: VITAL SIGNS: Temperature 99.4, pulse 83, blood pressure 107/56. GENERAL: He is in no acute distress. Alert and oriented x3. LUNGS: Clear to auscultation bilaterally. HEART: Regular rate and rhythm without murmur. ABDOMEN: Soft, nontender, nondistended. Bowel sounds are present. EXTREMITIES: 2+ pitting lower extremity edema. LABORATORY DATA: White blood cell count 9.1, hemoglobin 14.5, platelets 184. Creatinine 1.05, bilirubin 1.4, AST 76, ALT 95, alkaline phosphatase 55, albumin 3.7. IMPRESSION: 1. Acute diverticulitis. He seems to be responding adequately to the antibiotics. 2. Stool positive for Cryptosporidium. He really did not have start having diarrhea until he was already in the hospital on antibiotics. We will finish out a 3-day course of Alinia for the Cryptosporidium. 3. Acute renal failure, improving. 4. Atrial fibrillation with rapid ventricular response, improved. RECOMMENDATIONS: 1. Advance to a low fiber diet. 2. Continue metronidazole and ciprofloxacin. 3. Complete the 3-day course of Alinia. Job ID: [id number]
--- NOTE | 2018-11-17 18:45 | EKG ---
Test Reason : SEPSIS Blood Pressure : / mmHG Vent. Rate : 141 BPM Atrial Rate : 147 BPM P-R Int : 000 ms QRS Dur : 088 ms QT Int : 310 ms P-R-T Axes : 000 058 021 degrees QTc Int : 474 ms Atrial fibrillation with rapid ventricular response Cannot rule out Inferior infarct , age undetermined Abnormal ECG Confirmed by LIZETT KELLER ([id number]), loan expeditor PATRICIA OLIVO ([id number] on 11/17/2018 6:44:44 PM Referred By: Confirmed By:LIZETT KELLER
--- NOTE | 2018-11-17 22:33 | PDOC.PN ---
- Subjective Encounter Start Date: 11/17/18 Encounter Start Time: 13:30 Patient seen and examined for Acute Diverticulitis. Diarrhea improving. No new complaints. No overnight events - Objective Resuscitation Status - Order Detail: 11/15/18 01:37 Resuscitation Status Routine Resuscitation Status: FULL: Full Resuscitation MAR Reviewed: Yes Vital Signs & Weight: Vital Signs (12 hours) Temp Pulse Resp BP BP Pulse Ox 11/17/18 20:05 98.5 F 94 18 119/79 94 L 11/17/18 19:25 98.1 F 100 16 111/64 95 11/17/18 13:39 99.4 F 83 16 107/56 L 95 Weight Weight 234 lb 9.6 oz I&O: 11/16/18 11/17/18 11/18/18 06:59 06:59 06:59 Intake Total 1670 2650 Output Total 400 1625 Balance 1270 1025 Result Diagrams: 11/17/18 05:06 11/17/18 05:06 EKG Reviewed by me: Yes (Tele Afib - rate controlled) Phys Exam - Physical Examination Constitutional: NAD Respiratory: no wheezing, no rhonchi Cardiovascular: no rub, irregular Gastrointestinal: soft, positive bowel sounds mild tend in LLQ, No rebound Musculoskeletal: no edema Neurological: moves all 4 limbs Dx/Plan - Plan IMPRESSION: 1. Acute Diverticulitis 2. Ecoli bacteremia/Cryptosporidium infection 3. Sepsis with acute organ dysfunction due to #1 4. Afib with RVR - rate better controlled. 5. Elevated troponin due to demand ischemia 6. 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 Obesity BMI 32.5 8. HTN 9. Chronic anticoagulation 10. HLD PLAN: Cont IV Cipro and Flagyl - change to PO at dc Cont Alinia for Cryptosporidium Echo reviewed Cont Digoxin with low dose Metoprolol Advance diet Transfer to medical - Case d/w Dr Tavarez Review of Systems - Review of Systems Respiratory: negative: Cough, Dry, Shortness of Breath, Hemoptysis, SOB with Excertion, Pleuritic Pain, Sputum, Wheezing Cardiovascular: negative: chest pain, palpitations, orthopnea, paroxysmal nocturnal dyspnea, edema, light headedness, other - Medications/Allergies Allergies/Adverse Reactions: Allergies Allergy/AdvReac Type Severity Reaction Status Date / Time No Known Allergies Allergy Unverified 11/14/18 19:43 Medications: Current Medications Acetaminophen (Tylenol) 650 mg PO Q6H PRN PRN Reason: Headache/Fever or Pain Last Admin: 11/15/18 22:25 Dose: 650 mg Albuterol/Ipratropium (Duoneb) 3 ml NEB [id number] PRN PRN Reason: SOB &/or Wheezing Dabigatran (Pradaxa) 150 mg PO BID [facility] Last Admin: 11/17/18 21:11 Dose: 150 mg Digoxin (Lanoxin) 0.125 mg PO DAILY [facility] Last Admin: 11/17/18 09:30 Dose: 0.125 mg Famotidine (Pepcid) 20 mg PO BID [facility] Last Admin: 11/17/18 21:12 Dose: 20 mg Hydrochlorothiazide (Hydrochlorothiazide) 25 mg PO DAILY [facility] Last Admin: 11/17/18 09:30 Dose: 25 mg Metronidazole 500 mg/ Device 100 mls @ 100 mls/hr IVPB Q8HR [facility] Last Admin: 11/17/18 21:12 Dose: 100 mls Ciprofloxacin/Dextrose 400 mg/ (Device) 200 mls @ 200 mls/hr IVPB 0100,1300 [facility] Last Admin: 11/17/18 15:00 Dose: 200 mls Metoprolol Tartrate (Lopressor) 25 mg PO BID [facility] Last Admin: 11/17/18 21:12 Dose: 25 mg Miscellaneous Medication (Pharmacy To Dose) 1 each IVPB ONE PRN PRN Reason: Pharmacy to dose Stop: 12/15/18 15:17 Morphine Sulfate (Morphine) 1 mg SLOW IVP Q4H PRN PRN Reason: PAIN IF UNABLE TO TAKE PO Nitazoxanide (Alinia) 500 mg PO BID [facility] Last Admin: 11/17/18 21:11 Dose: 500 mg Nitroglycerin (Nitrostat) 0.3 mg SL Q5MIN PRN PRN Reason: Chest Pain Ondansetron HCl (Zofran) 4 mg SLOW IVP Q6H PRN PRN Reason: Nausea/Vomiting Last Admin: 11/15/18 22:14 Dose: 4 mg Potassium Chloride (K-Dur) 20 meq PO QAM-WM [facility] Last Admin: 11/17/18 09:30 Dose: 20 meq Saccharomyces Boulardii (Florastor) 250 mg PO DAILY [facility] Last Admin: 11/17/18 09:30 Dose: 250 mg Sodium Chloride (Flush - Normal Saline) 10 ml IVF Q12HR [facility] Last Admin: 11/17/18 21:12 Dose: 10 ml Sodium Chloride (Flush - Normal Saline) 10 ml IVF PRN PRN PRN Reason: Saline Flush
[2018-11-18 05:35] LABS: #Eosinphils 0.2 thou/uL (0.0-0.7); #Lymphocytes 0.9 thou/uL (1.20-3.40); #Monocytes 0.8 thou/uL (0.11-0.59); #Neutrophils 5.3 thou/uL (1.40-6.50); %Basophils 0.4 % (0.0-1.0); %Eosinophils 2.6 % (0.0-10.0); %Lymphocytes 12.4 % (21.0-51.0); %Monocytes 11.4 % (0.0-10.0); %Neutrophils 73.1 % (42.0-75.0); Hemoglobin 13.9 g/dL (14.0-18.0); Mean Corpuscular HGB CONC 33.2 g/dL (32.0-36.0); Mean Corpuscular Hemoglobin 30.1 pg (27.0-31.0); Mean Corpuscular Volume 90.6 fL (78.0-98.0); Mean Platelet Volume 6.8 fL (7.4-10.4); Platelet Count 185 thou/uL (130-400); RBC Distribution Width 13.2 % (11.5-14.5); Red Blood Cell (RBC) Count 4.61 mill/uL (4.70-6.10); White Blood Cell (WBC) Count 7.3 thou/uL (4.8-10.8)
[2018-11-18 05:58] LABS: ALT (SGPT) 70 U/L (8-55); AST (SGOT) 48 U/L (5-34); Albumin 3.3 g/dL (3.4-4.8); Alkaline Phosphatase 62 U/L (40-150); Anion Gap 12 mmol/L (10-20); BUN (Urea Nitrogen) 14 mg/dL (8.4-25.7); Bilirubin, Total 1.3 mg/dL (0.2-1.2); Calc. Creatinine Clearance 109 mL/min (70-130); Calcium 8.7 mg/dL (7.8-10.44); Carbon Dioxide 24 mmol/L (23-31); Chloride 104 mmol/L (98-107); Estimated GFR-MDRD 78; Globulin 2.7 g/dL (2.4-3.5); Glucose 109 mg/dL (80-115); Magnesium 1.9 mg/dL (1.6-2.6); Sodium 136 mmol/L (136-145)
[2018-11-18] MEDS: metroNIDAZOLE 500 MG in Premix Bag 1 BAG IVPB SCH (06:00)
[2018-11-18] MEDS: Hydrochlorothiazide 25 MG TAB PO SCH (08:30)
[2018-11-18] MEDS: Potassium Chloride 20 MEQ TAB PO SCH (08:30)
[2018-11-18] MEDS: Metoprolol Tartrate 25 MG TAB PO SCH (08:31)
[2018-11-18] MEDS: Famotidine 20 MG TAB PO SCH (08:31)
[2018-11-18] MEDS: Digoxin 0.125 MG TAB PO SCH (08:31)
[2018-11-18] MEDS: Saccharomyces boulardii 250 MG CAP PO SCH (08:31)
[2018-11-18] MEDS: Dabigatran 150 mg Capsule PO SCH (09:45)
[2018-11-18 11:37] VITALS: BP 113/73; TEMP 97.8
[2018-11-18] MEDS ORDERED: Ciprofloxacin 500 MG TAB PO SCH (11:45)
--- NOTE | 2018-11-18 16:15 | DIS ---
DATE OF ADMISSION: 11/14/2018 DATE OF DISCHARGE: 11/18/2018 DISCHARGE DISPOSITION: Home. FOLLOWUP: 1. Follow up with primary care physician Dr. Sylvain Amador in 1 week. 2. Follow up with Dr. Carrasco and Dr. Abdullahi Recio in 2 weeks. ALLERGIES: NO KNOWN DRUG ALLERGIES. THE PATIENT WAS SEEN ON THE DAY OF DISCHARGE. DENIES ANY NEW COMPLAINTS. NO CHEST PAIN, SHORTNESS OF BREATH, PALPITATIONS, OR SIGNIFICANT DIARRHEA REPORTED. SIGNIFICANT LABS: BNP 134, troponin 0.033, and CRP 8.36. Total bilirubin 1.3 on the day of discharge and creatinine 1.46 and at discharge 0.95. WBC 18.7 and at discharge 7.3. TSH 1.1. Blood culture showed E. coli, which was sensitive to ciprofloxacin. Repeat blood cultures were negative. Stool was positive for Cryptosporidium. Lipid profile showed LDL of 47, HDL 31, cholesterol 95, and triglycerides 85. BRIEF HOSPITAL COURSE: The patient is a 72-year-old male with chronic atrial fibrillation, hypertension, and diverticulosis, presented to the hospital with abdominal discomfort. His workup was consistent with atrial fibrillation with rapid ventricular response along with acute diverticulitis. He was started on broad-spectrum antibiotics and was kept n.p.o. The patient was seen by Cardiology as well as Gastroenterology. Blood culture 1 out of 2 was positive for E. coli. Stool workup was positive for Cryptosporidium. Diarrhea has significantly improved. He will complete ciprofloxacin and Flagyl for a total of 10 days. He will also complete a 3-day course of Alinia. Echocardiogram this admission showed ejection fraction 50% to 55% with moderate mitral regurgitation, [id number] tricuspid regurgitation. Metoprolol dose has been reduced. He has been started on low-dose digoxin for atrial fibrillation with rapid ventricular response. His heart rate is controlled at this time. His blood pressure on the day of discharge is 113/73, 115/74, and next 130/71. Overall symptomatically, he feels much better and appears stable for discharge. FINAL DIAGNOSES: 1. Sepsis with acute organ dysfunction secondary to acute diverticulitis with E. coli bacteremia and Cryptosporidium infection. 2. Atrial fibrillation with rapid ventricular response. Started on digoxin. Metoprolol dose reduced due to low blood pressure. 3. Elevated troponin secondary to demand ischemia. 4. Acute kidney injury on chronic kidney disease stage 2, resolved. 5. Obesity with a BMI of 32.5. 6. Hypertension. 7. Hyperlipidemia. 8. Chronic anticoagulation. 9. Mild hyponatremia. 10. Abnormal LFTs probably secondary to sepsis. 11. Mild chronic anemia. 12. Mild metabolic acidosis. 13. Elevated inflammatory markers. PLAN: 1. Plan was discussed with the patient in detail. He stated understanding. 2. Repeat labs including digoxin level in 2 weeks are recommended. 3. Primary care physician advised to follow. 4. The patient was also advised to follow up with Dr. Carrasco in next 2 weeks. DISCHARGE MEDICATION: 1. Flagyl 500 mg every 8 hourly for 1 week. 2. Ciprofloxacin 500 mg b.i.d. for 1 week. 3. Digoxin 0.125 mg daily. 4. Metoprolol tartrate 25 mg b.i.d. 5. Alinia 500 mg b.i.d. for 1 more dose. 6. Hydrochlorothiazide 25 mg daily. 7. Zocor 10 mg daily. 8. Fenofibrate 54 mg b.i.d. 9. Pradaxa 150 mg b.i.d. 10. Vitamin D3 of 10,000 units as directed. Job ID: [id number]
== END 2018-11-18 13:15 | disposition home or self-care (01) | DRG 872 ==
LOC: ERS 17:51 → 2NO 21:26 → T4-A 11-17 20:06
PROVIDERS: ADMIT Family Medicine; ATTEND Family Medicine
DX: A41.51 Sepsis due to Escherichia coli [E. coli] (principal); K57.32 Diverticulitis of large intestine without perforation or abscess without bleeding; N17.9 Acute kidney failure, unspecified; I24.8 Other forms of acute ischemic heart disease; A07.2 Cryptosporidiosis; E87.1 Hypo-osmolality and hyponatremia; E87.2 Acidosis; I48.2 Chronic atrial fibrillation; R65.20 Severe sepsis without septic shock; I12.9 Hypertensive chronic kidney disease with stage 1 through stage 4 chronic kidney disease, or unspecified chronic kidney disease; N18.2 Chronic kidney disease, stage 2 (mild); I08.1 Rheumatic disorders of both mitral and tricuspid valves; E78.5 Hyperlipidemia, unspecified; E66.9 Obesity, unspecified; Z79.01 Long term (current) use of anticoagulants; Z68.32 Body mass index [BMI] 32.0-32.9, adult
CPT/HCPCS: 36415; 36416; 71045; 74177; 80053; 80061; 81003; 83605; 83630; 83735; 83880; 84145; 84443; 84484; 85025; 86140; 87040; 87077; 87086; 87149; 87186; 87324; 87328; 87329; 87449; 87804; 93005; 93306; 96361; 96365; 96366; 96375; 96376; J0744; J1940; J2185; J2405; J7050; Q9966; S0028

== ENCOUNTER 2019-09-12 06:26 | Outpatient (CLI) | payer MEDICARE, BC ==
[2019-09-12 13:58] LABS: #Eosinphils 0.2 thou/uL (0.0-0.7); #Monocytes 0.7 thou/uL (0.11-0.59); #Neutrophils 4.5 thou/uL (1.40-6.50); %Basophils 0.4 % (0.0-1.0); %Eosinophils 3.3 % (0.0-10.0); %Lymphocytes 26.4 % (21.0-51.0); %Monocytes 9.7 % (0.0-10.0); %Neutrophils 60.2 % (42.0-75.0); Hemoglobin 15.9 g/dL (14.0-18.0); Mean Corpuscular HGB CONC 32.6 g/dL (32.0-36.0); Mean Corpuscular Hemoglobin 29.4 pg (27.0-31.0); Mean Corpuscular Volume 90.3 fL (78.0-98.0); Mean Platelet Volume 6.9 fL (7.4-10.4); Platelet Count 264 thou/uL (130-400); RBC Distribution Width 13.4 % (11.5-14.5); White Blood Cell (WBC) Count 7.5 thou/uL (4.8-10.8)
[2019-09-12 14:02] LABS: INR-International Normal Ratio 1.2; Prothrombin Time 14.8 SEC (12.0-14.7)
[2019-09-12 14:05] LABS: Bacteria/HPF None Seen HPF (None Seen); Bilirubin Negative (Negative); Blood, Urine Negative (Negative); Clarity Clear (Clear); Glucose, Urine (Dipstick) Normal (Negative); Leukocyte Negative Leu/uL (Negative); Nitrite Negative (Negative); Protein, Urine (Dipstick) Negative (Neg-Trace); RBC/HPF 0-3 HPF (0-3); Squamous Epithelial 0-3 HPF (0-3); Urobilinogen Normal mg/dL (Less than 2); WBC/HPF 0-3 HPF (0-3)
[2019-09-12 14:29] LABS: Anion Gap 13 mmol/L (10-20); BUN (Urea Nitrogen) 21 mg/dL (8.4-25.7); Calc. Creatinine Clearance 0 mL/min (70-130); Calcium 10.4 mg/dL (7.8-10.44); Carbon Dioxide 28 mmol/L (23-31); Chloride 102 mmol/L (98-107); Estimated GFR-MDRD 73; Glucose 88 mg/dL (83-110); Potassium 3.6 mmol/L (3.5-5.1); Sodium 139 mmol/L (136-145)
--- NOTE | 2019-09-13 17:57 | EKG ---
Test Reason : Blood Pressure : / mmHG Vent. Rate : 082 BPM Atrial Rate : 053 BPM P-R Int : 000 ms QRS Dur : 100 ms QT Int : 368 ms P-R-T Axes : 000 083 030 degrees QTc Int : 429 ms Atrial fibrillation Incomplete right bundle branch block Abnormal ECG When compared with ECG of 14-NOV-2018 18:25, Vent. rate has decreased BY 59 BPM Minimal criteria for Inferior infarct are no longer Present Nonspecific T wave abnormality no longer evident in Lateral leads Confirmed by Surya ABBOTT ([id number]) on 09/13/2019 5:56:21 PM Referred By: JOSESITO Confirmed By:Surya ABBOTT
== END 2019-09-12 06:27 | disposition home or self-care (01) ==
LOC: LABBT 06:26
PROVIDERS: ATTEND Orthopaedic Surgery
DX: Z01.818 Encounter for other preprocedural examination (principal); M16.12 Unilateral primary osteoarthritis, left hip
CPT/HCPCS: 80048; 81001; 85025; 85610; 87081; 93005; 93010

== ENCOUNTER 2019-09-12 08:45 | Inpatient (IN) | payer MEDICARE, BC ==
[2019-09-12 09:10] VITALS: BMI 27.8
[2019-09-17] MEDS ORDERED: Sodium Chloride 0.9% 100 ML ONE (05:51)
[2019-09-17] MEDS ORDERED: Tranexamic Acid 1,000 MG/10 ML VIAL ONE (05:51)
[2019-09-17] MEDS ORDERED: Vancomycin 1.5 GRAM/300 ML BAG 1.5 GM in Premix Bag 1 BAG IVPB SCH (06:00)
[2019-09-17] MEDS ORDERED: Midazolam HCl 2 mg/2 ml Vial ONE ×2 (06:08→06:17)
[2019-09-17] MEDS ORDERED: Fentanyl 100 MCG/2 ML VIAL ONE ×2 (06:08→06:17)
[2019-09-17] MEDS ORDERED: Bupivacaine 0.25% HCL 30 ML VIAL ONE (06:58)
[2019-09-17] MEDS ORDERED: Acetaminophen 325 MG TAB PO PRN (07:04)
[2019-09-17] MEDS ORDERED: Promethazine HCl 25 MG/ML VIAL IM PRN ×3 (07:04→08:57)
[2019-09-17] MEDS ORDERED: Ondansetron PF 4 MG/2 ML Vial IVP PRN ×2 (07:04→07:15)
[2019-09-17] MEDS ORDERED: Fentanyl 100 MCG/2 ML VIAL SLOW IVP PRN ×2 (07:04)
[2019-09-17] MEDS ORDERED: Zolpidem Tartrate 5 MG TAB PO PRN ×2 (07:04→07:15)
[2019-09-17] MEDS ORDERED: HYDROcodone/Acetaminophen 10/325 mg Tablet PO PRN ×2 (07:04)
[2019-09-17] MEDS ORDERED: diphenhydrAMINE 25 MG CAP PO PRN ×2 (07:04→07:15)
[2019-09-17] MEDS ORDERED: traMADol HCl 50 MG TAB PO PRN ×2 (07:15)
[2019-09-17] MEDS ORDERED: Naloxone HCl 0.4 mg/ml Vial IVP PRN (07:15)
[2019-09-17] MEDS ORDERED: diphenhydrAMINE 50 MG/ML VIAL IM PRN (07:15)
[2019-09-17] MEDS ORDERED: Promethazine HCl 25 MG SUPP PR PRN (07:15)
[2019-09-17] MEDS ORDERED: HYDROcodone/Acetaminophen 5/325 mg Tablet PO PRN ×2 (07:15)
[2019-09-17] MEDS ORDERED: Hydrocerin (Eucerin) Cream 120 gm Jar TOP PRN (07:15)
[2019-09-17] MEDS ORDERED: diphenhydrAMINE 50 MG/ML VIAL IVP PRN (07:15)
[2019-09-17] MEDS ORDERED: Bupivacaine 0.25% 10 ML VIAL EPIDURAL PRN (07:15)
[2019-09-17] MEDS ORDERED: Naloxone HCl 0.4 mg/ml Vial IV PRN (07:15)
[2019-09-17] MEDS ORDERED: PHENYLEPHRINE-NS 100 MCG/ML 10 ML SYRINGE ONE ×2 (08:15→10:05)
[2019-09-17] MEDS ORDERED: Promethazine HCl 25 MG/ML VIAL SLOW IVP PRN (08:57)
[2019-09-17] MEDS ORDERED: Ondansetron HCl/PF 4 MG/2 ML Vial IVP PRN (08:57)
--- NOTE | 2019-09-17 09:46 | RAD ---
XR Hip Lt 2-3 View History: Postop evaluation Comparison: None. Findings: Satisfactory appearance left hip arthroplasty. Expected postoperative gas and edema. Impression: Satisfactory postoperative appearance.
[2019-09-17] MEDS ORDERED: Lidocaine 1.5% w/Epi 1:200K 30 ML VIAL (Epid Use) ONE (10:05)
[2019-09-17] MEDS ORDERED: ePHEDrine/0.9% NaCl/PF SYRINGE 50 mg/10 ml ONE (10:05)
[2019-09-17] MEDS ORDERED: Propofol 500 MG/50 ML VIAL ONE (10:05)
[2019-09-17] MEDS ORDERED: Dexamethasone 20 MG/5 ML VIAL ONE (10:05)
[2019-09-17] MEDS ORDERED: Lidocaine 1% PF 5 ML VIAL ONE (10:05)
[2019-09-17] MEDS ORDERED: Rocuronium Bromide 10 MG/ML (10ML VIAL) ONE (10:05)
[2019-09-17] MEDS ORDERED: Glycopyrrolate 0.2 MG/ML 5 ML SYRINGE ONE (10:05)
[2019-09-17] MEDS ORDERED: Esmolol 100 MG/10 ML VIAL ONE (10:05)
--- NOTE | 2019-09-17 13:41 | OP ---
DATE OF PROCEDURE: 09/17/2019 PREOPERATIVE DIAGNOSIS: Degenerative joint disease, left hip. POSTOPERATIVE DIAGNOSIS: Degenerative joint disease, left hip. PROCEDURE PERFORMED: Left total hip arthroplasty using a Adi Accolate II #9 stem, -5, 36 head, a 56 mm Tritanium cup with a 36 mm X3 liner. DISTRICT ADMINISTRATIVE ASSISTANT: Kori Carrillo PA-C BLOOD LOSS: 300. SPECIMEN: None. DRAIN: None. COMPLICATION: None. PROCEDURE IN DETAIL: After informed consent was obtained in the preoperative holding area, the patient was taken to the operative suite where general anesthesia was induced. The patient was then positioned in the lateral decubitus position. The hip was then prepped and draped in usual sterile fashion. The patient received preoperative antibiotics. Prior to incision, time-out was called and all members of the surgical team agreed upon site, surgeon, and patient. After this, a longitudinal incision was made directly over the trochanter, noted by palpation extending 2 fingerbreadths above and below the trochanter. The deeper subcutaneous layer was undermined with Bovie electrocautery. The iliotibial band was encountered and incised sharply and the plane below this was developed bluntly. A Charnley retractor was placed to hold this opened. The lateral aspect of the trochanter and the abductor muscles were encountered and then reflected anteriorly off the trochanter using Bovie electrocautery. Once this was completed, the anterior capsule was then encountered and identified and copious capsulotomy was carried out, exposing the femoral neck and head. Dislocation maneuver was then performed and an in situ provisional neck cut was then made using the oscillating saw. Attention was then turned to acetabular preparation and sequential reaming was carried out up to the appropriate diameter. A trial was then malleted into place with good firm resistance and no pullout. The permanent acetabular shell was then malleted squarely into place, as was the appropriate liner. Once completed, the wound was copiously irrigated and attention was then turned to femoral preparation. Flexion and external rotation were performed of the exposed thigh and femoral elevators were then placed at the proximal aspect of the wound. Canal finder was used to establish the length of the canal and sequential reaming was carried out, followed by broaching. Once the appropriate stability was established with the trial broaches with flexion, extension and rotational stability, we did trial with neutral and 2 mm offset incremental necks. Once the appropriate size was decided upon, with good stability noted with flexion, extension, internal and external rotation and shuck being negative, we removed the femoral trial broach and malleted into place the permanent prosthesis with good firm fit, which was also stable to rotation. Again, the hip felt very stable to flexion, extension, internal and external rotation. Leg lengths appeared near anatomic clinically and we were quite happy with prosthesis placement. Copious irrigation was then carried out through the entirety of the wound. Primary closure of the abductors was accomplished with interrupted #2 Vicryl [id number] stitches and the IT band was then closed with interrupted #2 Vicryl, oversewn with a #2 running barbed Quill stitch. Subcutaneous fascia was closed with running barbed Quill stitch and a subcuticular Monocryl barbed Quill stitch was used for skin closure and augmented with skin cement. A sterile dressing was applied. The procedure was terminated without any complication. All counts were correct. The patient was awakened in the operative suite and taken to the recovery room in stable condition. Job ID: [id number]
[2019-09-17] MEDS: CEFAZOLIN 2 GM in Premix Bag 1 BAG IVPB SCH ×2 (14:29→21:34)
[2019-09-17] MEDS: Sodium Chloride 0.9% 1,000 ML IV SCH ×3 (14:41→21:48)
[2019-09-17] MEDS: Aspirin 81 mg Enteric Coated Tablet PO SCH ×2 (14:42→21:32)
[2019-09-17] MEDS: Fenofibrate 48 MG TAB PO SCH ×2 (14:43→21:32)
[2019-09-17] MEDS: Metoprolol Tartrate 25 MG TAB PO SCH (14:43)
[2019-09-17] MEDS: Hydrochlorothiazide 25 MG TAB PO SCH (14:43)
[2019-09-17] MEDS: Ferrous Gluconate 324 MG TAB PO SCH ×2 (14:43→21:33)
[2019-09-17] MEDS: Senokot S 8.6-50 MG TAB PO SCH ×2 (14:47→21:32)
[2019-09-17] MEDS: Multivitamin W/ Minerals 1 TAB PO SCH (14:47)
[2019-09-17] MEDS: Ketorolac Tromethamine 30 MG/ML VIAL IVP SCH ×2 (14:48→18:12)
[2019-09-17] MEDS ORDERED: Cepastat Lozenges 1 LOZ PO PRN (17:52)
[2019-09-17] MEDS: Simvastatin 5 MG TAB PO SCH (21:31)
[2019-09-18] MEDS: Ketorolac Tromethamine 30 MG/ML VIAL IVP SCH ×4 (00:21→17:54)
[2019-09-18] MEDS: Metoprolol Tartrate 25 MG TAB PO SCH ×3 (00:32→20:33)
[2019-09-18] MEDS: fentaNYL Citrate/PF 500 MCG, Bupivacaine 10 ML in Sodium Chloride 0.9% 80 ML EPIDURAL SCH ×2 (01:09→18:29)
--- NOTE | 2019-09-18 02:41 | CON ---
DATE OF CONSULTATION: REASON FOR CONSULTATION: Medical management. HISTORY OF PRESENT ILLNESS: A 73-year-old male patient, who was admitted today to undergo a left total hip surgery. We were consulted by his orthopedic surgeon to help with his medical management. The patient is currently postop, appears to be very comfortable on the med/surg floor. Denies any chest pain. Denies any shortness of breath. His blood pressure is slightly on the low side. Otherwise, no other issues. The patient has history of atrial fibrillation, on Eliquis, which was stopped approximately 5 days ago. He was also on metoprolol for his atrial fibrillation. He has history of congestive heart failure. His last EF as per him was around 55%, previous to that it was in the 30% in 2009. PAST MEDICAL HISTORY: 1. Atrial fibrillation. 2. Congestive heart failure with current EF of 55%. 3. Osteoarthritis. 4. High cholesterol. 5. Status post cholecystectomy. 6. Status post double inguinal hernia repair. 7. Status post Achilles tendon repair. 8. Neuropathy. 9. Venous insufficiency. 10. High hemoglobin that required blood-letting on two occasions. He was being followed by Hematology. SOCIAL HISTORY: Does not smoke. Does not drink alcohol. FAMILY HISTORY: Negative for heart disease. ALLERGIES: NO KNOWN TO HAVE ANY DRUG ALLERGIES. REVIEW OF SYSTEMS: All systems reviewed except for the above-mentioned, found to be negative. PHYSICAL EXAMINATION: GENERAL: Awake, alert, oriented, does not appear in distress. VITAL SIGNS: His blood pressure is 93/63, his heart rate as per the monitor 118, but as per previous EKG, around 80 beats per minute, we are in the process of doing another EKG, temperature is 97 degrees, saturating 95% on room air. HEENT: Head is nontraumatic, normocephalic. Pupils are equal and reactive. Extraocular movements are intact. Nonicteric sclerae. Well-injected conjunctivae. Oral mucosa normal. Nasal mucosa normal. NECK: Supple. No adenopathy. No murmur. Thyroid is not palpable. Trachea is midline. No supraclavicular lymphadenopathy. HEART: S1, S2 irregular. No murmur. No gallop. No friction rubs noted. No displacement of PMI. LUNGS: Clear to auscultation bilaterally. No wheezes, rhonchi, or crackles. ABDOMEN: Bowel sounds are positive. Nontender abdomen. No hepatosplenomegaly. EXTREMITIES: 1+ pitting edema in bilateral lower extremities with signs of chronic venous stasis with hyperpigmentation of the skin and skin scaling. NEUROLOGIC: Cranial nerves 2 through 12 within normal limits. Normal motor function. Normal sensory function. Normal reflexes. LABORATORY DATA: Blood work as an outpatient shows sodium of 139, potassium 3.6, bicarb of 28, creatinine 1, magnesium 1.9, AST 21, ALT 17. WBC 7.5, hemoglobin of 15.9, platelets of 264. EKG shows atrial fibrillation, as per my read. ASSESSMENT AND PLAN: This is a 73-year-old male patient, who is post left total hip surgery. He does have history of atrial fibrillation, on Eliquis, which was stopped 5 days ago, to be resumed as per Orthopedic Surgery, maybe when he is discharged in 1 to 2 days, he is on metoprolol. His blood pressure is on the low side, but receiving IV fluids. We will continue with IV fluids for now keeping in mind that he does have history of congestive heart failure. The patient's heart rates as per the monitor is elevated, but I believe that it is inaccurate, that is why we are doing an EKG. For deep venous thrombosis prophylaxis, he is on aspirin and sequential compressive devices. The patient is receiving antibiotics as per surgery protocol. The patient is receiving pain control as per surgery protocol. Thank you for involving us in the care of your patient. We will follow with you. Job ID: [id number]
[2019-09-18 07:39] LABS: #Eosinphils 0.2 thou/uL (0.0-0.7); #Lymphocytes 1.5 thou/uL (1.20-3.40); #Neutrophils 6.3 thou/uL (1.40-6.50); %Basophils 0.3 % (0.0-1.0); %Eosinophils 1.8 % (0.0-10.0); %Lymphocytes 17.1 % (21.0-51.0); %Monocytes 10.6 % (0.0-10.0); %Neutrophils 70.3 % (42.0-75.0); Hemoglobin 12.2 g/dL (14.0-18.0); Mean Corpuscular HGB CONC 33.6 g/dL (32.0-36.0); Mean Corpuscular Hemoglobin 30.5 pg (27.0-31.0); Mean Corpuscular Volume 90.8 fL (78.0-98.0); Mean Platelet Volume 6.3 fL (7.4-10.4); Platelet Count 222 thou/uL (130-400); RBC Distribution Width 13.2 % (11.5-14.5); Red Blood Cell (RBC) Count 4.01 mill/uL (4.70-6.10)
[2019-09-18 07:45] LABS: Chloride 107 mmol/L (98-107); Potassium 3.4 mmol/L (3.5-5.1); Sodium 137 mmol/L (136-145)
[2019-09-18 07:46] LABS: Calcium 8.8 mg/dL (7.8-10.44); Glucose 123 mg/dL (83-110)
[2019-09-18 07:48] LABS: Anion Gap 11 mmol/L (10-20); Carbon Dioxide 22 mmol/L (23-31)
[2019-09-18 07:50] LABS: Calc. Creatinine Clearance 84 mL/min (70-130); Estimated GFR-MDRD 70
[2019-09-18 07:51] LABS: BUN (Urea Nitrogen) 21 mg/dL (8.4-25.7)
--- NOTE | 2019-09-18 08:39 | PRG ---
DATE OF SERVICE: 09/18/2019 SUBJECTIVE: Matthew is a 73-year-old male, postop day 1 from a left total hip arthroplasty. He is comfortable. His epidural is working great, and he ambulated 300 feet yesterday. He is very happy with postoperative results and his pain has improved. OBJECTIVE: VITAL SIGNS: Temperature 98.6, pulse 92, respiratory rate 16, and blood pressure 91/53. GENERAL: He is alert and oriented to person, place, time, situation, responsive and appropriate with examiner. Then, sitting up comfortable and conversing with family. EXTREMITIES: He is neurovascularly intact in both lower extremities, in dorsiflexion, inversion, and eversion. Leg lengths are appropriate. No malrotation. No strike through. LABORATORY DATA: Hemoglobin and hematocrit 12.2 and 36.4. IMPRESSION: A 73-year-old male, postoperative day 1, left total knee arthroplasty, doing very well. PLAN: Continue current care. Probable discharge home tomorrow after removal of the epidural. Job ID: [id number]
[2019-09-18] MEDS: Ferrous Gluconate 324 MG TAB PO SCH ×2 (09:25→20:35)
[2019-09-18] MEDS: Multivitamin W/ Minerals 1 TAB PO SCH (09:25)
[2019-09-18] MEDS: Aspirin 81 mg Enteric Coated Tablet PO SCH ×2 (09:26→20:36)
[2019-09-18] MEDS: Hydrochlorothiazide 25 MG TAB PO SCH (09:26)
[2019-09-18] MEDS: Fenofibrate 48 MG TAB PO SCH ×2 (09:28→20:36)
[2019-09-18] MEDS: Senokot S 8.6-50 MG TAB PO SCH ×2 (09:28→20:35)
[2019-09-18] MEDS: Sodium Chloride 0.9% 1,000 ML IV SCH ×2 (10:56→20:34)
--- NOTE | 2019-09-18 15:06 | PDOC.HOSPP ---
- Subjective Subjective: He has no complaints today. - Objective Vital Signs & Weight: Vital Signs (12 hours) Temp Pulse Resp BP BP Pulse Ox 09/18/19 11:28 98.6 F 91 20 103/45 L 96 09/18/19 09:46 94/53 L 09/18/19 08:00 98.3 F 88 18 94/57 L 96 09/18/19 03:51 98.6 F 92 16 91/53 L 93 L Weight Admit Weight 200 lb Weight 200 lb I&O: 09/17/19 09/18/19 09/19/19 06:59 06:59 06:59 Output Total 1300 Balance -1300 Result Diagrams: 09/18/19 07:09 09/18/19 07:09 Hospitalist ROS - Medication Medications: Active Medications Generic Name Dose Route Start Last Admin Trade Name Freq PRN Reason Stop Dose Admin Aspirin 81 mg 09/17/19 09:00 09/18/19 09:26 Ecotrin PO 81 mg BID EMILY Administration Cholecalciferol 1,000 units 09/17/19 09:00 09/18/19 09:26 Vitamin D3 PO 1,000 units DAILY EMILY Administration Fenofibrate 48 mg 09/17/19 09:00 09/18/19 09:28 Tricor PO 48 mg BID EMILY Administration Ferrous Gluconate 324 mg 09/17/19 09:00 09/18/19 09:25 Fergon PO 324 mg BID EMILY Administration Hydrochlorothiazide 25 mg 09/17/19 09:00 09/18/19 09:26 Hydrochlorothiazide PO 25 mg DAILY EMILY Administration Fentanyl Citrate 500 mcg/ 100 mls @ 6 mls/hr 09/17/19 07:15 09/18/19 01:09 Bupivacaine HCl 10 ml/ Sodium EPIDURAL 100 mls Chloride INF EMILY Administration Sodium Chloride 1,000 mls @ 100 mls/hr 09/17/19 07:15 09/18/19 10:56 Normal Saline 0.9% IV 1,000 mls .Q10H EMILY Administration Iron/Minerals/Multivitamins 1 tab 09/17/19 09:00 09/18/19 09:25 Theragran M PO 1 tab DAILY EMILY Administration Ketorolac Tromethamine 15 mg 09/17/19 12:00 09/18/19 13:13 Toradol IVP 09/19/19 06:01 15 mg Q6HR EMILY Administration Metoprolol Tartrate 25 mg 09/17/19 09:00 09/18/19 09:26 Lopressor PO Not Given BID EMILY Senna/Docusate Sodium 2 tab 09/17/19 09:00 09/18/19 09:28 Senokot S PO 2 tab BID EMILY Administration Simvastatin 10 mg 09/17/19 21:00 09/17/19 21:31 Zocor PO 10 mg HS EMILY Administration Testosterone Cypionate 0.5 mg 09/17/19 07:15 09/17/19 14:42 Depo-Testosterone IM Not Given Q14D EMILY Throat Lozenges 1 brittany 09/17/19 17:52 09/17/19 18:29 Cepastat Lozenges PO 1 brittany Q2H PRN Administration Sore Throat - Exam General Appearance: awake alert Eye: PERRL ENT: normocephalic atraumatic Neck: supple Heart: RRR, irregular Respiratory: CTAB Gastrointestinal: soft Hosp A/P - Plan He is post left hip arthroplasty and progessing favorably. cardiac---rate controlled afib, BP on he low side but improving, bblocker on hold for low BP, he is on hydration, will continue with IVF and resume bblocker when his BP tolerates. pain control DVT prophylaxis
[2019-09-18] MEDS: Simvastatin 5 MG TAB PO SCH (20:35)
[2019-09-19] MEDS: Ketorolac Tromethamine 30 MG/ML VIAL IVP SCH ×2 (00:06→05:28)
[2019-09-19 06:09] LABS: Hemoglobin 12.8 g/dL (14.0-18.0); Mean Corpuscular HGB CONC 34.3 g/dL (32.0-36.0); Mean Corpuscular Hemoglobin 30.4 pg (27.0-31.0); Mean Corpuscular Volume 88.8 fL (78.0-98.0); Mean Platelet Volume 6.9 fL (7.4-10.4); Platelet Count 202 thou/uL (130-400); RBC Distribution Width 13.2 % (11.5-14.5); White Blood Cell (WBC) Count 9.7 thou/uL (4.8-10.8)
[2019-09-19] MEDS: Multivitamin W/ Minerals 1 TAB PO SCH (08:21)
[2019-09-19] MEDS: Ferrous Gluconate 324 MG TAB PO SCH (08:21)
[2019-09-19] MEDS: Aspirin 81 mg Enteric Coated Tablet PO SCH (08:21)
[2019-09-19] MEDS: Fenofibrate 48 MG TAB PO SCH (08:22)
[2019-09-19] MEDS: Senokot S 8.6-50 MG TAB PO SCH (10:21)
[2019-09-19] MEDS: Metoprolol Tartrate 25 MG TAB PO SCH (10:22)
[2019-09-19] MEDS: Hydrochlorothiazide 25 MG TAB PO SCH (10:22)
[2019-09-19] MEDS: Sodium Chloride 0.9% 1,000 ML IV SCH (10:24)
[2019-09-19 13:56] VITALS: BP 111/71; TEMP 97.3
--- NOTE | 2019-09-19 14:45 | PDOC.HOSPP ---
- Subjective Subjective: doing well today and eager to go home. - Objective Vital Signs & Weight: Vital Signs (12 hours) Temp Pulse Resp BP BP Pulse Ox 09/19/19 12:00 97.3 F L 110 H 20 111/71 97 09/19/19 08:00 98.3 F 100 18 108/71 95 09/19/19 05:31 98.4 F 106 H 16 99/65 94 L Weight Admit Weight 200 lb Weight 200 lb I&O: 09/18/19 09/19/19 09/20/19 06:59 06:59 06:59 Intake Total 840 Output Total 3245 1000 Balance -2405 -1000 Result Diagrams: 09/19/19 05:28 09/18/19 07:09 Hospitalist ROS - Medication Medications: Active Medications Generic Name Dose Route Start Last Admin Trade Name Freq PRN Reason Stop Dose Admin Hydrocodone Bitart/Acetaminophen 1 tab 09/17/19 07:04 09/19/19 14:39 [place] 10/325 PO 1 tab Q4H PRN Administration Moderate Pain (4-6) Aspirin 81 mg 09/17/19 09:00 09/19/19 08:21 Ecotrin PO 81 mg BID EMILY Administration Cholecalciferol 1,000 units 09/17/19 09:00 09/19/19 08:22 Vitamin D3 PO 1,000 units DAILY EMILY Administration Fenofibrate 48 mg 09/17/19 09:00 09/19/19 08:22 Tricor PO 48 mg BID EMILY Administration Ferrous Gluconate 324 mg 09/17/19 09:00 09/19/19 08:21 Fergon PO 324 mg BID EMILY Administration Hydrochlorothiazide 25 mg 09/17/19 09:00 09/19/19 10:22 Hydrochlorothiazide PO Not Given DAILY EMILY Fentanyl Citrate 500 mcg/ 100 mls @ 6 mls/hr 09/17/19 07:15 09/18/19 18:29 Bupivacaine HCl 10 ml/ Sodium EPIDURAL 100 mls Chloride INF EMILY Administration Sodium Chloride 1,000 mls @ 100 mls/hr 09/17/19 07:15 09/19/19 10:24 Normal Saline 0.9% IV Not Given .Q10H EMILY Iron/Minerals/Multivitamins 1 tab 09/17/19 09:00 09/19/19 08:21 Theragran M PO 1 tab DAILY EMILY Administration Metoprolol Tartrate 25 mg 09/17/19 09:00 09/19/19 10:22 Lopressor PO Not Given BID EMILY Senna/Docusate Sodium 2 tab 09/17/19 09:00 09/19/19 10:21 Senokot S PO 2 tab BID EMILY Administration Simvastatin 10 mg 09/17/19 21:00 09/18/19 20:35 Zocor PO 10 mg HS EMILY Administration Testosterone Cypionate 0.5 mg 09/17/19 07:15 09/17/19 14:42 Depo-Testosterone IM Not Given Q14D EMILY Throat Lozenges 1 brittany 09/17/19 17:52 09/17/19 18:29 Cepastat Lozenges PO 1 brittany Q2H PRN Administration Sore Throat - Exam Eye: PERRL ENT: normocephalic atraumatic Neck: supple Heart: no murmur, irregular Respiratory: CTAB, no wheezes, no rales Gastrointestinal: soft, non-tender, non-distended Hosp A/P - Plan He is post left hip arthroplasty and progessing favorably. cardiac---rate controlled afib, BP on he low side but improving, bblocker on hold for low BP, he is on hydration, will continue with IVF and resume bblocker when his BP tolerates. pain control DVT prophylaxis plan for today 09/19 BP is better, I advised him to resume his bblocker, but also to monitor his BP and touch base with Cardiology, he might need half of his dosage. He will be discharged today and can resume Eliquis.
== END 2019-09-19 15:09 | disposition home or self-care (01) | DRG 470 ==
LOC: SJJU 09-17 05:24
PROVIDERS: ADMIT Orthopaedic Surgery; ATTEND Orthopaedic Surgery
PROC: 0SRB0J9 Replacement of Left Hip Joint with Synthetic Substitute, Cemented, Open Approach (ICD-10-PCS; principal; 2019-09-17)
DX: M16.12 Unilateral primary osteoarthritis, left hip (principal); I48.20 Chronic atrial fibrillation, unspecified; E78.5 Hyperlipidemia, unspecified; E78.00 Pure hypercholesterolemia, unspecified; I50.9 Heart failure, unspecified; Z79.01 Long term (current) use of anticoagulants; Z90.49 Acquired absence of other specified parts of digestive tract; G62.9 Polyneuropathy, unspecified; I87.2 Venous insufficiency (chronic) (peripheral)
CPT/HCPCS: 36415; 80048; 85027; 93005; 93010; J0690; J1100; J1885; J2001; J2250; J2704; J3010; J3490; S0020

== ENCOUNTER 2020-01-31 08:36 | Outpatient (CLI) | payer MEDICARE, BC ==
--- NOTE | 2020-01-31 09:04 | RAD ---
Lumbar spine 2 views HISTORY: Low back pain. COMPARISON: CT 11/14/2018. FINDINGS: There are 5 lumbar type vertebrae. Pedicles are intact. Mild leftward convex rotatory scoli otic curvature on the frontal view. Prominent compression deformity of the L1 vertebral body is similar to the CT from 11/14/2018. Mild superior endplate compression at L4 is also stable. Grade 2 spondylolisthesis is again demonstrated at the lumbosacral junction, unchanged from the prior CT. Bulky osteophytosis throughout the vertebral bodies and facets. Left hip prosthesis partially visualized. Metallic clips overlie the gallbladder fossa. IMPRESSION : Prominent compression of L1, partial compression of L4, prominent degenerative changes, and other fin dings are stable.
== END 2020-01-31 08:37 | disposition home or self-care (01) ==
LOC: BICRAD 08:36
PROVIDERS: ATTEND Family Medicine
DX: M54.5 Low back pain (principal); M47.816 Spondylosis without myelopathy or radiculopathy, lumbar region; G95.29 Other cord compression
CPT/HCPCS: 72100

== ENCOUNTER 2020-02-25 08:37 | Outpatient (CLI) | payer MEDICARE, BC ==
--- NOTE | 2020-02-25 10:59 | MRI ---
MRI LUMBAR SPINE WITHOUT CONTRAST: HISTORY: Low back pain. COMPARISON: Radiographs 01/31/2020. 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 There is minimal ret ropulsion of the posterior superior and posterior inferior end plates, 2-3 mm. There is a subacute compression deformity, and incomplete burst fracture, involving the L2 vertebral body. Minimal 1 mm retropulsion of the posterior superior end plate. Fracture line is appreciated. There is 20% superior end plate depression. Chronic superior end plate depressions of L4 and L5. There is a minimal edema, subacute compression deformity, at the anterior superior end plate of L3 with minimal height loss. Large anterior bridging osteophyte of L5-S1. There is anterolisthesis of L5 over S1 approximately 8 mm with bilateral L5 pars intraarticularis defects. Levels are as follows: L1-2: There is a circumferential disk-osteophyte complex. There is moderate left and moderate to se dottie right neural foraminal narrowing. Some minimal effacement of the ventral CSF space without spin al canal narrowing. L2-3: Mild degenerative disk space height loss with desiccation and disk-osteophyte complex. There is a moderate facet joint effusion. There are stress changes of the pars interarticularis of L2 bila terally. There is a moderate bilateral neural foraminal narrowing. Minimal effacement of the ventral CSF space with the spinal canal measuring approximately a centimete r. L3-4: There is a large disk-osteophyte complex with disk desiccation and height loss. Moderate hype rtrophic facet arthrosis. Mild left and right neural foraminal narrowing. No significant spinal can al narrowing. L4-5: Disk-osteophyte complex and height loss with desiccation. Moderate hypertrophic facet arthros is. Moderate bilateral neural foraminal narrowing. No significant spinal canal narrowing. L5-S1: Anterolisthesis as described with disk-osteophyte complex and posterior displacement of disk material as an adaptation to subluxation. There is moderate to severe bilateral neural foraminal renny rowing with abutment of both exiting and traversing nerve roots. IMPRESSION: 1. Subacute compression fracture of L2 and anterior superior end plate of L3 as described. There ar e also stress changes/nondisplaced fracture of the pars intraarticularis of L2. 2. 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 3. Multiple superior end plate herniations of disk material throughout the lumbar spine. 4. An 8 mm L5 over S1 anterolisthesis T2 pars interarticular defects. 5. Multifocal neural foraminal narrowing as described. POS: HOME
== END 2020-02-25 08:38 | disposition home or self-care (01) ==
LOC: SCSMRI 08:37
PROVIDERS: ATTEND Orthopaedic Surgery
DX: M54.5 Low back pain (principal); M43.17 Spondylolisthesis, lumbosacral region; M43.04 Spondylolysis, thoracic region; M51.26 Other intervertebral disc displacement, lumbar region; M48.061 Spinal stenosis, lumbar region without neurogenic claudication; M48.07 Spinal stenosis, lumbosacral region; S32.029A Unspecified fracture of second lumbar vertebra, initial encounter for closed fracture; S32.011A Stable burst fracture of first lumbar vertebra, initial encounter for closed fracture
CPT/HCPCS: 72148

== ENCOUNTER 2020-03-10 10:17 | Outpatient (CLI) | payer MEDICARE, BC ==
--- NOTE | 2020-03-10 13:47 | RAD ---
CHEST TWO VIEWS: 03/10/20 INDICATION: Left sided rib pain. FINDINGS: The lungs are clear. Heart size is normal appearing. No pleural effusion or pneumothorax is demonstra mandeep. IMPRESSION: No acute cardiopulmonary abnormality. POS: [facility]
--- NOTE | 2020-03-10 13:48 | RAD ---
THREE VIEWS OF THE LEFT CHEST WALL: 03/10/20 INDICATION: Left rib pain. IMPRESSION: No displaced left sided rib fracture is evident. Visualized left lung is clear. POS: BH
--- NOTE | 2020-03-10 13:49 | RAD ---
RIGHT RIBS THREE VIEWS: 03/10/20 INDICATION: Right sided rib pain. IMPRESSION: No displaced right sided rib fracture is evident. The visualized right lung is clear. POS: BH
== END 2020-03-10 10:18 | disposition home or self-care (01) ==
LOC: BICRAD 10:17
PROVIDERS: ATTEND Family Medicine
DX: R07.81 Pleurodynia (principal)
CPT/HCPCS: 71046

== ENCOUNTER 2021-07-15 09:52 | Outpatient (CLI) | payer MEDICARE, BC | END 2021-07-15 09:53 | disposition home or self-care (01) | LOC: BICRAD 09:52 | PROVIDERS: ATTEND Physician Assistant | DX: S29.9XXA Unspecified injury of thorax, initial encounter (principal) ==

== ENCOUNTER 2025-06-23 08:49 | Outpatient (CLI) | payer MEDICARE, BC | END 2025-06-23 08:50 | disposition home or self-care (01) | LOC: BICMAMMO 08:49 | PROVIDERS: ATTEND Internal Medicine Endocrinology, Diabetes & Metabolism | DX: M81.0 Age-related osteoporosis without current pathological fracture (principal); M85.851 Other specified disorders of bone density and structure, right thigh | CPT/HCPCS: 77080 ==